=== PATIENT | male | born 1955 | race Two or more races ===

== ENCOUNTER 2018-08-06 09:27 | Inpatient (IN) | payer OTHER ==
[~2018-08-06] VITALS: Ht 175.3 cm; Wt 88.5 kg
[~2018-08-06 09:27] MED LIST: AMOX1TAB12 PO; CONEX TABLET1 EACH PO; NASONEX17 GM NS; OSEL75CA PO; TESSALON200 MG; VASOTEC10 MG; VASOTEC20 M1 PO; VERAPAMIL ER180 MG PO
== END 2018-08-10 15:49 | disposition designated cancer center or children's hospital (05) | DRG 280 ==
LOC: ER 09:27 → MEDI 16:32
PROC: 4A12X4Z Monitoring of Cardiac Electrical Activity, External Approach (ICD-10-PCS; 2018-08-06)
PROC: B246ZZZ Ultrasonography of Right and Left Heart (ICD-10-PCS; principal; 2018-08-07)
DX: I21.4 Non-ST elevation (NSTEMI) myocardial infarction (principal); I50.23 Acute on chronic systolic (congestive) heart failure; N17.8 Other acute kidney failure; I24.9 Acute ischemic heart disease, unspecified; I11.0 Hypertensive heart disease with heart failure; I34.0 Nonrheumatic mitral (valve) insufficiency

== ENCOUNTER 2019-08-30 11:45 | Emergency (ER) | payer OTHER ==
[~2019-08-30] VITALS: Ht 175.3 cm; Wt 94.3 kg
[2019-08-30] MEDS ORDERED: TUSNEL LIQUID178 ML PO (12:57)
== END 2019-08-30 13:20 | disposition home or self-care (01) ==
LOC: ER 11:45
DX: M54.5 Low back pain (principal)

== ENCOUNTER 2020-11-28 08:39 | Emergency (ER) | payer OTHER ==
[~2020-11-28] VITALS: Ht 172.7 cm; Wt 98.0 kg
[~2020-11-28 08:39] MED LIST changes: +TUSNEL LIQUID178 ML PO
[2020-11-28] MEDS ORDERED: SKELAXIN800 MG PO (11:39)
[2020-11-28] MEDS ORDERED: ULTRAM50 MG PO (11:39)
[2020-11-28] MEDS ORDERED: SYMBICORT 16010.2 GM IH (11:39)
[2020-11-28] MEDS ORDERED: GRALISE600 MG PO (11:39)
== END 2020-11-28 11:51 | disposition home or self-care (01) ==
LOC: ER 08:39
DX: M54.31 Sciatica, right side (principal); J45.998 Other asthma

== ENCOUNTER 2021-01-01 08:47 | Emergency (ER) | payer OTHER ==
[~2021-01-01] VITALS: Ht 172.7 cm; Wt 98.0 kg
[~2021-01-01 08:47] MED LIST changes: +GRALISE600 MG PO; +SKELAXIN800 MG PO; +SYMBICORT 16010.2 GM IH; +ULTRAM50 MG PO
[2021-01-01] MEDS ORDERED: TAMS0.4C (09:28)
== END 2021-01-01 12:49 | disposition home or self-care (01) ==
LOC: ER 08:47
DX: I16.0 Hypertensive urgency (principal); I10 Essential (primary) hypertension; H81.13 Benign paroxysmal vertigo, bilateral

== ENCOUNTER 2021-01-30 07:50 | Emergency (ER) | payer OTHER ==
[~2021-01-30] VITALS: Ht 172.7 cm; Wt 96.2 kg
[~2021-01-30 07:50] MED LIST changes: +TAMS0.4C
[2021-01-30] MEDS ORDERED: ALL DAY ALLERGY10 M3 PO (08:49)
[2021-01-30] MEDS ORDERED: DIPROSONE OINT.15 GM TOP (08:49)
[2021-01-30] MEDS ORDERED: MEDROLPACK PO (08:49)
== END 2021-01-30 08:54 | disposition home or self-care (01) ==
LOC: ER 07:50
DX: L20.89 Other atopic dermatitis (principal)

== ENCOUNTER 2021-02-17 05:32 | Emergency (ER) | payer OTHER ==
[~2021-02-17] VITALS: Ht 172.7 cm; Wt 97.1 kg
[~2021-02-17 05:32] MED LIST changes: +ALL DAY ALLERGY10 M3 PO; +DIPROSONE OINT.15 GM TOP; +MEDROLPACK PO
== END 2021-02-17 09:19 | disposition home or self-care (01) ==
LOC: ER 05:32
DX: L29.8 Other pruritus (principal)

== ENCOUNTER 2021-12-26 07:34 | Emergency (ER) | payer OTHER ==
[~2021-12-26] VITALS: Ht 172.7 cm; Wt 98.0 kg
[2021-12-26] MEDS ORDERED: ZESTRIL20 MG (08:04)
[2021-12-26] MEDS ORDERED: FARXIGA10 MG PO (08:05)
== END 2021-12-26 09:18 | disposition home or self-care (01) ==
LOC: ER 07:34
DX: S29.011A Strain of muscle and tendon of front wall of thorax, initial encounter (principal); Z88.6 Allergy status to analgesic agent; I10 Essential (primary) hypertension; E11.9 Type 2 diabetes mellitus without complications

== ENCOUNTER → 2022-03-30 | Emergency (ER) | payer OTHER ==
[~2022-03-30] VITALS: Ht 172.7 cm; Wt 90.7 kg
[~2022-03-30] MED LIST changes: +FARXIGA10 MG PO; +ZESTRIL20 MG
== END | disposition left against medical advice (07) ==
LOC: ER 14:18
DX: Z53.21 Procedure and treatment not carried out due to patient leaving prior to being seen by health care provider (principal)